=== PATIENT | female | born 1965 | race Caucasian/White ===

== ENCOUNTER 2016-11-21 07:38 | Emergency (ER) | payer OTHER ==
[~2016-11-21] VITALS: Ht 154.9 cm; Wt 56.0 kg
[2016-11-21 07:41] VITALS: Ht 154.9 cm; Wt 56.0 kg
[2016-11-21] MEDS ORDERED: BEN25 PO (08:26)
[2016-11-21] MEDS ORDERED: CLOB60CR2 TOP (08:27)
--- NOTE | 2016-11-21 08:38 | ERD ---
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 She states that the rash started 10 days ago with mild erythema. She states that the rash is itchy but not painful. She says that over the last couple of days the rash has gotten worse. She states that she has been using garlic for the last 3 days which has not helped with her rash. She has no medical issues. Denies recent travel outside the country. Denies fever chills. Denies vomiting or diarrhea. She has no other complaints. Denies chest pain or cough or shortness of breath. Denies new medications. Denies using any creams on rash. ROS All systems reviewed and are negative except as per history of present illness. Medications Home Meds Active Scripts Clobetasol Propionate* (Clobetasol Propionate*) 60 Gm Cream.gm., 1 APPLIC TOP BID, #1 TUB Prov:TONY LAWS PA-C 11/21/16 Diphenhydramine Hcl* (Benadryl*) 25 Mg Cap, 25 MG PO Q6 Y for ITCHING/RASH, #30 TAB Prov:TONY LAWS PA-C 11/21/16 Allergies Allergies: Coded Allergies: No Known Allergy (Unverified , 11/21/16) PMhx/Soc Medical and Surgical Hx: pt denies Medical Hx, pt denies Surgical Hx History of Surgery: No Anesthesia Reaction: No Hx Neurological Disorder: No Hx Respiratory Disorders: No Hx Cardiac Disorders: No Hx Psychiatric Problems: No Hx Miscellaneous Medical Probl: No Hx Alcohol Use: No Hx Substance Use: No Hx Tobacco Use: No Smoking Status: Never smoker FmHx Family History: No coronary disease, No diabetes, No other Physical Exam Vitals Vital Signs Date Time Temp Pulse Resp B/P Pulse Ox O2 Delivery O2 Flow Rate FiO2 11/21/16 07:41 97.9 70 18 148/70 99 Physical Exam GENERAL: Well-developed, well-nourished female Appears in no acute distress. HEAD: Normocephalic, atraumatic. EYES: Pupils are equally reactive bilaterally. EOMs grossly intact. No conjunctival erythema. ENT: Moist mucous membranes. No uvula deviation. No kissing tonsils. No exudates. NECK: Supple. No lymphadenopathy or thyromegaly. No meningismus. negative kernig. negative brudinski. LUNG: Clear to auscultation bilaterally. No rhonchi, wheezing, rales or coarse breath sounds. HEART: Regular rate and rhythm. No murmurs, rubs or gallops. Extremities: Equal pulses bilaterally. No peripheral clubbing, cyanosis or edema. No unilateral leg swelling. NEUROLOGIC: Alert and oriented. Moving all four extremities. 5/5 strength in all extremities. Normal speech. Steady gait. SKIN: . Capillary refill < 2 seconds. large blisters on dorsal aspect of right forearm. not easily ruptures. negative nikolsky sign. darker red skin surrounding blisters. Procedures/MDM ER COURSE: I kept the patient and/or family informed of laboratory and diagnostic imaging results throughout the emergency room course. MEDICAL DECISION MAKING: This is a 51-year-old female who presents with rash 10 days on her forearms. Vital signs were reviewed. Patient is afebrile. Patient is not hypoxic. Patient is not toxic or ill-appearing. I consulted with my supervising physician Dr. Stein who came to examine patient at bedside and agrees with my medical decision making and discharge plans. Patient's rash is likely bullous pemphigoid. Patient has negative Nikolsky's sign and therefore I have low suspicion for pemphigoid vulgaris. Patient's rash is likely autoimmune in nature and patient needs to follow-up with a advertising consultant for proper treatment. Low suspicion for necrotizing fasciitis, SJS, toxic epidermal necrolysis, Kawasaki, erythema multiforme, gangrene, scarlet fever, meningococcemia, sepsis, anaphylaxis, sepsis, deep space infection, or foreign body. I explained to patient that she is to follow-up with a advertising consultant and I will be giving her topical corticosteroids. DISCHARGE: At this time, patient is stable for discharge and outpatient management with no new complaints during the ER course. Patient was sent home with clobetasol cream , Benadryl for itching and to follow-up with a advertising consultant.. Patient will be discharged home with instructions to recheck for new or worsening symptoms such as fever, nausea, weakness, LOC and to follow up with primary care in the next 1 -2 days. Patient was advised to return to the ER for any new or worsening symptoms. Plan was discussed and patient and/or family understands and agrees. Home instructions were given. Departure Diagnosis: Primary Impression: Bullous pemphigoid Condition: Stable Patient Instructions: Self-Care for Skin Rashes Referrals: LEX LO MD,LIZ ARREDONDO,JUANITA NAPOLES,SERGIO Youssef Additional Instructions: FOLLOW UP WITH PRIMARY CARE DOCTOR TO GET A REFERRAL TO SEE A DERMATOLGOIST Call your primary care doctor TOMORROW for an appointment during the next 1-2 days.See the doctor sooner or return here if your condition worsens before your appointment time. TONY LAWS PA-C Nov 21, 2016 08:38
== END 2016-11-21 08:45 | disposition home or self-care (01) ==
LOC: FTE 07:38
DX: L12.0 Bullous pemphigoid (principal)
CPT/HCPCS: 99283

== ENCOUNTER 2017-08-20 12:29 | Day surgery (SDC) | END 2017-08-20 19:11 | disposition home or self-care (01) ==

== ENCOUNTER 2018-11-11 20:55 | Emergency (ER) | payer OTHER ==
[~2018-11-11] VITALS: Ht 152.4 cm; Wt 47.0 kg
[~2018-11-11 20:55] MED LIST: NO MEDS
[2018-11-11 20:57] VITALS: Ht 152.4 cm; Wt 47.0 kg
--- NOTE | 2018-11-11 22:15 | ERD ---
ER Documentation Chief Complaint Chief Complaint cough after being exposed to bathroom cleaning agents 3 days ago HPI 53-year-old female presents with complaint of cough after inhaling fumes of the bathroom cleaning agent 3 days ago. Patient denies any fevers, chills, wheezing, hemoptysis, chest pain, nausea, vomiting, headaches, shortness of breath, lightheadedness. ROS All systems reviewed and are negative except as per history of present illness. Medications Home Meds Reported Medications [No Meds] No Conflict Check 08/20/17 Allergies Allergies: Coded Allergies: No Known Allergy (Unverified , 11/21/16) PMhx/Soc History of Surgery: No Anesthesia Reaction: No Hx Neurological Disorder: No Hx Respiratory Disorders: No Hx Cardiac Disorders: No Hx Psychiatric Problems: No Hx Miscellaneous Medical Probl: No Hx Alcohol Use: No Hx Substance Use: No Hx Tobacco Use: No Smoking Status: Never smoker FmHx Family History: No diabetes, No coronary disease, No other Physical Exam Vitals Vital Signs Date Temp Pulse Resp B/P (MAP) Pulse Ox O2 O2 Flow FiO2 Time Delivery Rate 11/11/18 98.6 103 18 185/103 98 20:57 (130) Physical Exam Const: No acute distress Head: Atraumatic Eyes: Normal Conjunctiva ENT: Normal External Ears, Nose and Mouth. Neck: Full range of motion. No meningismus. Resp: Clear to auscultation bilaterally Cardio: Regular rate and rhythm, no murmurs Abd: Soft, non tender, non distended. Normal bowel sounds Skin: No petechiae or rashes Back: No midline or flank tenderness Ext: No cyanosis, or edema Neur: Awake and alert Psych: Normal Mood and Affect Procedures/MDM DIAGNOSTIC IMAGING REPORT Patient: NANCY FONG : 1965 Age: 53 Sex: F MR #: [id number] DOS: 11/11/182144 Ordering MD: FARA PALMER Location: [facility] Room/Bed: PROCEDURE: XR Chest. CLINICAL INDICATION: Cough. Tachycardia. TECHNIQUE: Single frontal view. COMPARISON: None. FINDINGS: The lungs are clear. The heart size is normal. There is no pleural effusion. There is no pneumothorax. IMPRESSION: 1. Normal chest radiograph. RPTAT: QQ .Bishnu Hammond MD, MD Date Time Electronically viewed and signed by .Bishnu Hammond MD, MD on 11/11/2018 22:16 .R/ CC: FARA PALMER [id number] MDM: Patient was slightly tachycardic in the exam but she stated that she was also nervous. Patient was not coughing during the exam and chest x-ray was ordered and results within normal limits. Lung exam is normal with no rales, rhonchi, wheezes heard. Patient possibly had some mucosal irritation due to the inhalation of an unknown loom cleaner and I advised her to monitor it to follow-up with her primary care provider. In addition, patients Wells score did not indicate further d-dimer testing. I have low suspicion for tubercolosis, pneumonia, pleural effusion, acute heart failure, foreign body aspiration, pulmonary embolism, pneumothorax, or other emergent etiology. Patients O2 sat is normal and is not having difficulty breathing, therefore patient is fit for discharge. At this time, patient is stable for discharge and outpatient management. I have instructed the patient to follow-up with his/her primary care physician in 1-2 d ays. I have discussed with the patient the possibility of needing to see a specialist for further workup and imaging studies if symptoms persist. I have instructed the patient to promptly return to the ER for any new or worsening symptoms including but not limited to increased pain, fever, nausea, vomiting, weakness or LOC. The patient and/or family expressed understanding of and a greement with this plan. All questions were answered. Home care instructions were provided. Communication with patient both during the exam and instructions for discharge were performed with using a automatic drill operator . Patient gave verbal confirmation to the practitioner, through the automatic drill operator, that they understood everythign that was being said to them. DISCLAIMER: Inadvertent spelling and grammatical errors are likely due to EHR/dictation software use and do not reflect on the overall quality of patient care. Also, please note that the electronic time recorded on this note does not necessarily reflect the actual time of the patient encounter. Departure Diagnosis: Primary Impression: Cough Condition: Stable FARA PALMER Nov 11, 2018 22:15
[2018-11-11] MEDS ORDERED: D-ME473S2 PO (22:34)
[2018-11-11 23:20] VITALS: BP 164/112; PULSE 80
== END 2018-11-11 23:23 | disposition home or self-care (01) ==
LOC: FTE 20:55
DX: R05 Cough (principal)
CPT/HCPCS: 71045; Z7502